=== PATIENT | female | born 1990 | race Two or more races ===

== ENCOUNTER 2025-01-05 22:07 | Emergency (ER) | payer MEDICAID, OTHER ==
[~2025-01-05] VITALS: Ht 162.6 cm; Wt 56.3 kg
--- NOTE | 2025-01-05 22:54 | DVH ---
Right lower extremity venous duplex Clinical History: RIGHT LOWER LEG PAIN Comparison: None Technique: Duplex Doppler evaluation of the deep venous system of the right lower extremity from the common femo ral vein to the popliteal vein including color Doppler and spectral/pulsed waveform analysis was perf ormed. Findings: The common femoral vein demonstrates appropriate compressibility and waveform variability. There is compressibility/patency of the great saphenous vein at the proximal thigh. The femoral vein demonstrates appropriate compressibility and waveform variability. The deep femoral vein demonstrates appropriate compressibility and waveform variability. The popliteal vein demonstrates appropriate compressibility and waveform variability. There is normal compressibility at the tibioperoneal trunk. Impression: No evidence of right femoropopliteal venous thrombosis.
--- NOTE | 2025-01-06 00:47 | DVH ---
CLINICAL INDICATION: PAIN TECHNIQUE: XY Right KNEE 3V XRAY Comparison: None FINDINGS/IMPRESSION: There is no evidence of acute fracture or dislocation. Mild medial and lateral compartment osteoarthritis. Soft tissues are unremarkable.
[2025-01-06 04:15] VITALS: BP 156/95; PULSE 100; RESP 19; TEMP 98.5; O2SAT 98
[2025-01-06] MEDS ORDERED: ACET500T58 PO (04:33)
--- NOTE | 2025-01-06 04:33 | ED.PDOC ---
Musculoskeletal HPI Comments 34-year-old female presents to ER with complaints of right knee pain x5 months. Patient reports that she started experiencing unprovoked right knee pain five months ago. She rates her current pain a 7/10 to right knee with radiation down right leg. Denies use of medications for current symptoms. Patient presents to ER ambulatory on arrival with steady gait, in no distress. 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 Family History Family History: Unknown Social History Smoker: Non-Smoker Alcohol: Denies ETOH Use Drugs: Denies Drug Use Lives In: Home Constitutional: denies: chills, diaphoresis, fatigue, fever, malaise, sweats, weakness, others EENTM: denies: blurred vision, double vision, ear bleeding, ear discharge, ear drainage, ear pain, ear ringing, eye pain, eye redness, hearing loss, mouth pain, mouth swelling, nasal discharge, nose bleeding, nose congestion, nose pain, photophobia, tearing, throat pain, throat swelling, voice changes, others Respiratory: denies: cough, hemoptysis, orthopnea, SOB at rest, shortness of breath, SOB with excertion, stridor, wheezing, others Cardiovascular: denies: chest pain, dizzy spells, diaphoresis, Dyspnea on exertion, edema, irregular heart beat, left arm pain, lightheadedness, palpitations, PND, syncope, others Gastrointestinal: denies: abdomen distended, abdominal pain, blood streaked bowels, constipated, diarrhea, dysphagia, difficulty swallowing, hematemesis, melena, nausea, poor appetite, poor fluid intake, rectal bleeding, rectal pain, vomiting, others Genitourinary: denies: abnormal vagina bleeding, burning, dyspareunia, dysuria, flank pain, frequency, hematuria, incontinence, pain, , vagina discharge, urgency, others Neurological: denies: dizziness, fainting, headache, left sided numbness, left sided weakness, numbness, paresthesia, pre-existing deficit, right sided numbness, right sided weakness, seizure, speech problems, tingling, tremors, weakness, others Musculoskeletal: reports: others ( STATED IN HPI) Integumetry: denies: bruises, change in color, change in hair/nails, dryness, laceration, lesions, lumps, rash, wounds, others Allergic/Immunocompromised: denies: Difficulty Healing, Frequent Infections, Hives, Itching, others Hematologic/Lymphatic: denies: anemia, blood clots, easy bleeding, easy bruising, swollen glands, others Endocrine: denies: excessive hunger, excessive sweating, excessive thirst, excessive urination, flushing, intolerance to cold, intolerance to heat, unexplained weight gain, unexplained weight loss, others Psychiatric: denies: anxiety, bipolar disorder, depression, hopeless, panic disorder, schizophrenia, sleepless, suicidal, others Physical Exam General Appearance: No Apparent Distress HEENT: PERRL/EOMI Neck: Full Range of Motion, Non-Tender, Normal Respiratory: Chest Non-Tender, Lungs Clear, No Accessory Muscle Use, No Respiratory Distress, Normal Breath Sounds Cardiovascular: No Murmur, No Gallop, Regular Rate/Rhythm Breast Exam: Deferred Gastrointestinal: NOT DONE Genitalia: Deferred Pelvic: Deferred Rectal: Deferred Extremities: No calf tenderness, Normal capillary refill, Normal range of motion Musculoskeletal : Extremity Location: Knee (TTP TO MEDIAL JOINT LINE OF RIGHT KNEE NOTED. NO SKIN CHANGES NOTED. NEGATIVE ANTERIOR DRAWER TEST RIGHT KNEE. NEGATIVE TYRONE'S TEST RIGHT KNEE. PATIENT ABLE TO FULLY MOVE RIGHT KNEE. PULSES INTACT. NO OTHER TTP TO RIGHT LEG NOTED. STEADY GAIT APPRECIATED) Neurologic: Alert, speech language pathology assistant II-XII nml as Tested, No Motor Deficits, Normal Affect, Normal Mood, No Sensory Deficits Cerebellar Function: Normal Reflexes: Normal Skin: Dry, Normal Color, Warm Peripheral Pulses: 2+ femoral (R), 2+ femoral (L), 2+ dorsalis pedis (R), 2+ dorsalis pedis (L) Lymphatic: No Adenopathy Was a procedure done? Was a procedure done?: No Sedation Sedation?: No Differential Diagnosis EXT Differential Diagnosis: Deep Vein Thrombosis, Fracture, Dislocation, Neurovascular injury X-Ray, Labs, Meds, VS Vital Signs Date Time Temp Pulse Resp B/P (MAP) Pulse Ox O2 Delivery O2 Flow Rate FiO2 01/06/25 04:15 Room Air* 0 21 01/06/25 04:15 98.5 100 19 156/95 (115) 98 98.5 01/05/25 22:27 98.3 100 19 156/96 (116) 96 98.3 PATIENT: DAY MORENOACCT: [id number]: [id number] : 1990 LOC: ER ROOM / BED: / AGE / SEX: 34 / F ADM STATUS: REG ER SERVICE 25 ORDERING PHYSICIAN: ISAI CRUZ PROCEDURE(s): RKN3 - R KNEE 3V XRAY REASON: PAIN ORDER NUMBER(s): [id number], ACCESSION NUMBER(s): [id number] CLINICAL INDICATION: PAIN TECHNIQUE: XY Right KNEE 3V XRAY Comparison: None FINDINGS/IMPRESSION: There is no evidence of acute fracture or dislocation. Mild medial and lateral compartment osteoarthritis. Soft tissues are unremarkable. ATED BY: SALOMÓN MEHTA MD DICTATED DATE/TIME: 01/06/2543 SIGNED BY: SALOMÓN MEHTA MD SIGNED DATE/TIME: 01/06/2543 CC: PATIENT: DAY MORENO ACCT: [id number] UNIT: [id number] : 1990 LOC: ER ROOM / BED: / AGE / SEX: 34 / F ADM STATUS: REG ER SERVICE 25 ORDERING PHYSICIAN: ISAI CRUZ PROCEDURE(s): RLDVT - RT Lower DVT REASON: RIGHT LOWER LEG PAIN ORDER NUMBER(s): [id number], ACCESSION NUMBER(s): [id number] Right lower extremity venous duplex Clinical History: RIGHT LOWER LEG PAIN Comparison: None Technique: Duplex Doppler evaluation of the deep venous system of the right lower extremity from the common femoral vein to the popliteal vein including color Doppler and spectral/pulsed waveform analysis was performed. Findings: The common femoral vein demonstrates appropriate compressibility and waveform variability. There is compressibility/patency of the great saphenous vein at the proximal thigh. The femoral vein demonstrates appropriate compressibility and waveform variability. The deep femoral vein demonstrates appropriate compressibility and waveform variability. The popliteal vein demonstrates appropriate compressibility and waveform variability. There is normal compressibility at the tibioperoneal trunk. Impression: No evidence of right femoropopliteal venous thrombosis. ATED BY: PAPA RAMAN MD DICTATED DATE/TIME: 01/05/252251 SIGNED BY: PAPA RAMAN MD SIGNED DATE/TIME: 01/05/252251 CC: RIGHT KNEE AND RIGHT LOWER DVT ULTRASOUND REVIEWED PATIENT NEUROVASCULARLY INTACT LIFESTYLE EDUCATION DISCUSSED ADVISED TO FOLLOW UP WITH PCP AND ORTHOPEDICS IN 1-2 DAYS PATIENT VERBALIZED UNDERSTANDING AND AGREEABLE WITH CURRENT PLAN OF CARE ADVISED TO RETURN TO ER IMMEDIATELY IF SYMPTOMS WORSEN Images Reviewed?: Images reviewed and evaluated by me Time of 1ST Reevaluation: 04:12 Reevaluation 1ST: N/A Patient Education/Counseling: Diagnosis, Treatment, Prognosis, Need For Follow Up Family Education/Counseling: No Family Present Departure 1 Departure Time of Disposition: 04:32 Impression: Primary Impression: Arthritis of right knee Disposition: 01 HOME / SELF CARE / HOMELESS Condition: Stable e-Prescriptions Acetaminophen (Acetaminophen) 500 Mg Tab 500 MG PO Q4HPRN, #30 TAB 0 Refills Prov: ISAI CRUZ 01/06/25 Discharged With: Self Critical Care Note Critical Care Time?: No Stability Stability form required: No Heart Score Heart Score: Heart Score Response (Comments) Value History N/A 0 EKG N/A 0 Age N/A 0 Risk Factors N/A 0 Troponin N/A 0 Total 0 ISAI CRUZ Jan 06, 2025 04:33
== END 2025-01-06 04:42 | disposition home or self-care (01) ==
LOC: ER 22:07
DX: M17.11 Unilateral primary osteoarthritis, right knee (principal); Z79.2 Long term (current) use of antibiotics
CPT/HCPCS: 73562; 93971